=== PATIENT | male | born 1965 | race Caucasian/White ===

== ENCOUNTER 2017-09-10 14:39 | Inpatient (IN) | payer OTHER ==
[2017-09-10] MEDS: SOD CHLORIDE 0.9% 500 ML IV (21:30)
[2017-09-10 22:25] LABS: ADD MAN DIFF? NO
[2017-09-10 22:35] LABS: ADD UMIC YES; UR ASCORBIC ACID NEGATIVE (NEGATIVE); UR BILIRUBIN (Dip) NEGATIVE (NEGATIVE); UR BLOOD (Dip) NEGATIVE (NEGATIVE); UR CLARITY CLEAR (CLEAR); UR COLOR AMBER (YELLOW); UR GLUCOSE (Dip) NEGATIVE (NEGATIVE); UR KETONES (Dip) TRACE mg/dL (NEGATIVE); UR LEUKOCYTE ESTERASE (Dip) NEGATIVE Leu/ul (NEGATIVE); UR MUCUS FEW /HPF (NONE SEEN); UR NITRITE (Dip) NEGATIVE (NEGATIVE); UR RBC 1 /HPF (0-5); UR SPECIFIC GRAVITY (Dip) 1.029 (1.003-1.030); UR TOTAL PROTEIN (Dip) 1+ mg/dl (NEGATIVE); UR UROBILINOGEN (Dip) 1+ mg/dL (NEGATIVE); UR WBC 2 /HPF (0-5)
[2017-09-10 22:38] LABS: BASOPHILS % 0.4 % (0.0-2.0); EOSINOPHILS # 0.3 10^3/ul (0.0-0.5); EOSINOPHILS % 3.8 % (0.0-7.0); HEMATOCRIT 40.3 % (42.0-52.0); LYMPHOCYTES # 1.8 10^3/ul (0.8-2.9); LYMPHOCYTES % 25.2 % (15.0-51.0); MEAN CORPUSCULAR HEMOGLOBIN 28.1 pg (29.0-33.0); MEAN CORPUSCULAR HGB CONC 32.3 g/dl (32.0-37.0); MEAN CORPUSCULAR VOLUME 87.2 fl (82.0-101.0); MEAN PLATELET VOLUME 10.1 fl (7.4-10.4); MONOCYTE # 0.6 10^3/ul (0.3-0.9); MONOCYTES % 7.8 % (0.0-11.0); NEUTROPHIL # 4.4 10^3/ul (1.6-7.5); NEUTROPHILS % 62.5 % (39.0-77.0); PLATELET COUNT 261 10^3/UL (140-415); RED BLOOD COUNT 4.62 10^6/ul (4.70-6.10); RED CELL DISTRIBUTION WIDTH 14.1 % (11.5-14.5)
[2017-09-10 22:42] LABS: INR 0.97
[2017-09-10 22:43] LABS: PARTIAL THROMBOPLASTIN TIME 29.9 Sec (25.0-35.0)
[2017-09-10 22:45] LABS: ALANINE AMINOTRANSFERASE 43 IU/L (13-69); ALBUMIN 4.4 g/dl (3.3-4.9); ALBUMIN/GLOBULIN RATIO 1.46; ALKALINE PHOSPHATASE 89 IU/L (42-121); ANION GAP 16 (8-16); ASPARTATE AMINO TRANSFERASE 25 IU/L (15-46); BILIRUBIN,INDIRECT 0.6 mg/dl (0-1.1); BILIRUBIN,TOTAL 0.6 mg/dl (0.2-1.3); BLOOD UREA NITROGEN 25 mg/dl (7-20); CALCIUM 9.9 mg/dl (8.4-10.2); CARBON DIOXIDE 30 mmol/L (21-31); CHLORIDE 103 mmol/L (97-110); CREATININE 0.92 mg/dl (0.61-1.24); GLUCOSE 101 mg/dl (70-220); SODIUM 145 mmol/L (135-144); TOTAL PROTEIN 7.4 g/dl (6.1-8.1)
[2017-09-10 23:47] LABS: AMPHETAMINE/METHAMPHETAMINE Negative (NEGATIVE); BARBITURATES Negative (NEGATIVE); BENZODIAZEPINES Negative (NEGATIVE); CANNABINOIDS Negative (NEGATIVE); COCAINE Negative (NEGATIVE); OPIATES Negative (NEGATIVE)
[2017-09-11] MEDS ORDERED: ACETAMINOPHEN 325 MG TAB PO
[2017-09-11] MEDS: NA PHOSPHATE/BIPHOS 133 ML ENEMA PR (01:41)
[2017-09-11] MEDS: LORAZEPAM 2 MG INJ IV ×4 (01:41→16:54)
[2017-09-11] MEDS ORDERED: NACL 0.9% 3 ML SYG IV (02:00)
[2017-09-11] MEDS ORDERED: ONDANSETRON 4 MG INJ IV ×2 (02:00)
[2017-09-11 06:31] LABS: HEMOGLOBIN A1C 5.8 % (0-5.9)
[2017-09-11 07:16] LABS: CHOL/HDL RATIO 3.7 RATIO; CHOLESTEROL 89 mg/dl (100-200); HDL CHOLESTEROL 24 mg/dl (28-71); LDL CHOLESTEROL,CALCULATED 45 mg/dl; TRIGLYCERIDES 99 mg/dl (0-149)
[2017-09-11 08:16] LABS: FOLATE > 20.0 ng/ml (2.8-20.0)
[2017-09-12] MEDS: HALOPERIDOL 5 MG INJ IM ×3 (01:32→20:12)
[2017-09-12] MEDS: DIPHENHYDRAMINE 50 MG INJ IV ×2 (05:22→20:12)
[2017-09-12] MEDS: LORAZEPAM 2 MG INJ IV (06:06)
[2017-09-12] MEDS: FLUOXETINE 20 MG CAP PO (09:39)
[2017-09-12 11:43] LABS: ADD MAN DIFF? NO
[2017-09-12 11:46] LABS: BASOPHILS % 0.4 % (0.0-2.0); EOSINOPHILS # 0.2 10^3/ul (0.0-0.5); EOSINOPHILS % 2.5 % (0.0-7.0); HEMATOCRIT 39.2 % (42.0-52.0); HEMOGLOBIN 12.9 g/dl (14.0-18.0); LYMPHOCYTES # 1.3 10^3/ul (0.8-2.9); LYMPHOCYTES % 16.1 % (15.0-51.0); MEAN CORPUSCULAR HEMOGLOBIN 28.4 pg (29.0-33.0); MEAN CORPUSCULAR HGB CONC 32.9 g/dl (32.0-37.0); MEAN CORPUSCULAR VOLUME 86.3 fl (82.0-101.0); MEAN PLATELET VOLUME 10.1 fl (7.4-10.4); MONOCYTE # 0.6 10^3/ul (0.3-0.9); NEUTROPHIL # 5.9 10^3/ul (1.6-7.5); NEUTROPHILS % 73.9 % (39.0-77.0); PLATELET COUNT 240 10^3/UL (140-415); RED BLOOD COUNT 4.54 10^6/ul (4.70-6.10)
[2017-09-12 12:11] LABS: ALANINE AMINOTRANSFERASE 42 IU/L (13-69); ALBUMIN 3.8 g/dl (3.3-4.9); ALBUMIN/GLOBULIN RATIO 1.58; ALKALINE PHOSPHATASE 73 IU/L (42-121); ANION GAP 14 (8-16); ASPARTATE AMINO TRANSFERASE 27 IU/L (15-46); BILIRUBIN,INDIRECT 0.7 mg/dl (0-1.1); BILIRUBIN,TOTAL 0.7 mg/dl (0.2-1.3); BLOOD UREA NITROGEN 12 mg/dl (7-20); CALCIUM 9.2 mg/dl (8.4-10.2); CARBON DIOXIDE 28 mmol/L (21-31); CHLORIDE 107 mmol/L (97-110); GLUCOSE 99 mg/dl (70-220); POTASSIUM 3.5 mmol/L (3.5-5.1); SODIUM 145 mmol/L (135-144); TOTAL PROTEIN 6.2 g/dl (6.1-8.1)
[2017-09-12] MEDS: ACETAMINOPHEN 325 MG TAB PO (12:15)
[2017-09-12 13:33] LABS: ANA SCREEN NEGATIVE (NEGATIVE)
[2017-09-12] MEDS: LORAZEPAM 1 MG TAB PO (14:49)
[2017-09-12 19:43] LABS: RAPID PLASMA REAGIN NONREACTIVE (NR)
[2017-09-12] MEDS ORDERED: DIPHENHYDRAMINE 50 MG INJ (20:10)
[2017-09-12] MEDS ORDERED: HALOPERIDOL 5 MG INJ (20:10)
[2017-09-12] MEDS: ARIPIPRAZOLE 2 MG TAB PO (20:12)
[2017-09-13] MEDS: LORAZEPAM 1 MG TAB PO ×2 (01:04→21:46)
[2017-09-13] MEDS ORDERED: HALOPERIDOL 5 MG INJ (04:08)
[2017-09-13] MEDS: DIPHENHYDRAMINE 50 MG INJ IV (04:17)
[2017-09-13] MEDS: HALOPERIDOL 5 MG INJ IM (04:17)
[2017-09-13] MEDS: FLUOXETINE 20 MG CAP PO (09:01)
[2017-09-13] MEDS: ARIPIPRAZOLE 2 MG TAB PO ×2 (12:36→21:46)
[2017-09-13 17:26] LABS: CERULOPLASMIN 27 mg/dL (18-36)
[2017-09-13] MEDS ORDERED: GLUCOSE GEL 15 GRAM TUBE PO ×2 (21:00)
[2017-09-13] MEDS ORDERED: GLUCOSE GEL 15 GRAM TUBE BUCCAL (21:00)
[2017-09-13] MEDS: INSULIN ASPART [NOVOLOG] 3 ML PEN SC (21:00)
[2017-09-13] MEDS ORDERED: DEXTROSE 50% 50 ML SYRINGE IV ×2 (21:00)
[2017-09-13] MEDS ORDERED: GLUCAGON 1 MG INJ IM (21:00)
[2017-09-13] MEDS: POLYETHYLENE GLYCOL 17 GM PACKET PO (21:46)
[2017-09-14] MEDS: ACCU-CHEK XX (02:00)
[2017-09-14] MEDS: ACETAMINOPHEN 325 MG TAB PO (04:26)
[2017-09-14] MEDS: SENNA TAB PO (04:26)
[2017-09-14] MEDS: INSULIN ASPART [NOVOLOG] 3 ML PEN SC ×4 (08:00→20:26)
[2017-09-14] MEDS: FLUOXETINE 20 MG CAP PO (09:18)
[2017-09-14] MEDS: POLYETHYLENE GLYCOL 17 GM PACKET PO ×2 (09:18→20:20)
[2017-09-14] MEDS: ARIPIPRAZOLE 2 MG TAB PO ×2 (09:18→20:20)
[2017-09-14] MEDS: LORAZEPAM 2 MG INJ IV (18:05)
[2017-09-15] MEDS: LORAZEPAM 2 MG INJ IV ×2 (00:19→23:04)
[2017-09-15] MEDS: ACCU-CHEK XX (02:00)
[2017-09-15] MEDS: INSULIN ASPART [NOVOLOG] 3 ML PEN SC ×4 (08:00→20:46)
[2017-09-15] MEDS: ARIPIPRAZOLE 2 MG TAB PO ×2 (09:15→20:40)
[2017-09-15] MEDS: SENNA TAB PO (09:15)
[2017-09-15] MEDS: POLYETHYLENE GLYCOL 17 GM PACKET PO ×2 (09:15→20:40)
[2017-09-15] MEDS: FLUOXETINE 20 MG CAP PO (09:15)
[2017-09-15 15:37] LABS: VITAMIN B1 (THIAMINE) 201 nmol/L (78-185)
[2017-09-16] MEDS: HALOPERIDOL 5 MG INJ IM ×2 (00:15→03:53)
[2017-09-16] MEDS: ACCU-CHEK XX (01:38)
[2017-09-16] MEDS: DIPHENHYDRAMINE 50 MG INJ IV (02:01)
[2017-09-16] MEDS: LORAZEPAM 2 MG INJ IV ×2 (03:53→20:35)
[2017-09-16] MEDS: INSULIN ASPART [NOVOLOG] 3 ML PEN SC ×4 (08:00→20:34)
[2017-09-16] MEDS: POLYETHYLENE GLYCOL 17 GM PACKET PO ×2 (08:10→20:34)
[2017-09-16] MEDS: FLUOXETINE 20 MG CAP PO (08:11)
[2017-09-16] MEDS: ARIPIPRAZOLE 2 MG TAB PO ×2 (08:11→20:34)
[2017-09-17] MEDS: HALOPERIDOL 5 MG INJ IM ×3 (00:23→23:53)
[2017-09-17] MEDS: ACCU-CHEK XX ×2 (01:57→23:59)
[2017-09-17] MEDS: LORAZEPAM 2 MG INJ IV ×2 (02:26→20:17)
[2017-09-17] MEDS: DIPHENHYDRAMINE 50 MG INJ IV (03:22)
[2017-09-17] MEDS: INSULIN ASPART [NOVOLOG] 3 ML PEN SC ×4 (08:00→20:16)
[2017-09-17] MEDS: POLYETHYLENE GLYCOL 17 GM PACKET PO ×2 (08:07→20:17)
[2017-09-17] MEDS: ARIPIPRAZOLE 2 MG TAB PO ×2 (08:09→20:17)
[2017-09-17] MEDS: FLUOXETINE 20 MG CAP PO (08:09)
[2017-09-18 05:55] LABS: ADD MAN DIFF? NO
[2017-09-18 05:56] LABS: BASOPHIL # 0.1 10^3/ul (0.0-0.1); BASOPHILS % 0.4 % (0.0-2.0); EOSINOPHILS # 0.3 10^3/ul (0.0-0.5); EOSINOPHILS % 2.1 % (0.0-7.0); HEMATOCRIT 39.5 % (42.0-52.0); HEMOGLOBIN 13.1 g/dl (14.0-18.0); LYMPHOCYTES # 1.9 10^3/ul (0.8-2.9); LYMPHOCYTES % 15.6 % (15.0-51.0); MEAN CORPUSCULAR HEMOGLOBIN 28.8 pg (29.0-33.0); MEAN CORPUSCULAR HGB CONC 33.2 g/dl (32.0-37.0); MEAN CORPUSCULAR VOLUME 86.8 fl (82.0-101.0); MEAN PLATELET VOLUME 10.6 fl (7.4-10.4); MONOCYTE # 0.9 10^3/ul (0.3-0.9); MONOCYTES % 7.3 % (0.0-11.0); NEUTROPHIL # 8.9 10^3/ul (1.6-7.5); NEUTROPHILS % 74.3 % (39.0-77.0); PLATELET COUNT 298 10^3/UL (140-415); RED BLOOD COUNT 4.55 10^6/ul (4.70-6.10); RED CELL DISTRIBUTION WIDTH 14.2 % (11.5-14.5)
[2017-09-18 06:53] LABS: ANION GAP 19 (8-16); BLOOD UREA NITROGEN 17 mg/dl (7-20); CALCIUM 10.1 mg/dl (8.4-10.2); CARBON DIOXIDE 25 mmol/L (21-31); CHLORIDE 106 mmol/L (97-110); CREATININE 0.92 mg/dl (0.61-1.24); GLUCOSE 118 mg/dl (70-220); MAGNESIUM 2.1 mg/dl (1.7-2.5); PHOSPHORUS 4.2 mg/dl (2.5-4.9); POTASSIUM 3.8 mmol/L (3.5-5.1); SODIUM 146 mmol/L (135-144)
[2017-09-18] MEDS: LORAZEPAM 2 MG INJ IV ×3 (07:58→20:57)
[2017-09-18] MEDS: INSULIN ASPART [NOVOLOG] 3 ML PEN SC ×4 (08:00→21:02)
[2017-09-18] MEDS: ARIPIPRAZOLE 2 MG TAB PO ×2 (09:12→20:57)
[2017-09-18] MEDS: FLUOXETINE 20 MG CAP PO (09:12)
[2017-09-18] MEDS: POLYETHYLENE GLYCOL 17 GM PACKET PO ×2 (09:12→20:57)
[2017-09-18] MEDS: HALOPERIDOL 5 MG INJ IM ×2 (10:24→21:22)
[2017-09-18] MEDS: D5W-0.45 NACL + KCL 20 MEQ 1,000 ML IV ×2 (11:12→21:00)
[2017-09-18] MEDS ORDERED: ALPRAZOLAM 0.5 MG TAB PO (12:30)
[2017-09-18] MEDS: MEMANTINE 5 MG TAB PO (17:32)
[2017-09-18] MEDS: DONEPEZIL 5 MG TAB PO (17:32)
[2017-09-18] MEDS: ACETAMINOPHEN 325 MG TAB PO (20:57)
[2017-09-19] MEDS: ACCU-CHEK XX (02:00)
[2017-09-19] MEDS: LORAZEPAM 2 MG INJ IV ×2 (02:52→22:24)
[2017-09-19 08:00] LABS: ADD MAN DIFF? NO
[2017-09-19 08:09] LABS: WHITE BLOOD COUNT 9.6 10^3/ul (4.8-10.8)
[2017-09-19 08:09] LABS: BASOPHIL # 0.1 10^3/ul (0.0-0.1); BASOPHILS % 0.5 % (0.0-2.0); EOSINOPHILS # 0.3 10^3/ul (0.0-0.5); EOSINOPHILS % 2.8 % (0.0-7.0); HEMATOCRIT 40.9 % (42.0-52.0); LYMPHOCYTES # 1.2 10^3/ul (0.8-2.9); LYMPHOCYTES % 12.9 % (15.0-51.0); MEAN CORPUSCULAR HEMOGLOBIN 28.1 pg (29.0-33.0); MEAN CORPUSCULAR HGB CONC 31.8 g/dl (32.0-37.0); MEAN CORPUSCULAR VOLUME 88.3 fl (82.0-101.0); MEAN PLATELET VOLUME 10.2 fl (7.4-10.4); MONOCYTE # 0.7 10^3/ul (0.3-0.9); MONOCYTES % 7.5 % (0.0-11.0); NEUTROPHIL # 7.3 10^3/ul (1.6-7.5); PLATELET COUNT 273 10^3/UL (140-415); RED BLOOD COUNT 4.63 10^6/ul (4.70-6.10); RED CELL DISTRIBUTION WIDTH 14.2 % (11.5-14.5)
[2017-09-19 08:44] LABS: ANION GAP 14 (8-16); BLOOD UREA NITROGEN 20 mg/dl (7-20); CALCIUM 9.5 mg/dl (8.4-10.2); CARBON DIOXIDE 26 mmol/L (21-31); CHLORIDE 108 mmol/L (97-110); CREATININE 0.74 mg/dl (0.61-1.24); GLUCOSE 114 mg/dl (70-220); POTASSIUM 3.9 mmol/L (3.5-5.1); SODIUM 144 mmol/L (135-144)
[2017-09-19] MEDS: INSULIN ASPART [NOVOLOG] 3 ML PEN SC ×4 (08:49→21:00)
[2017-09-19] MEDS: DONEPEZIL 5 MG TAB PO (09:00)
[2017-09-19] MEDS: FLUOXETINE 20 MG CAP PO (09:00)
[2017-09-19] MEDS: POLYETHYLENE GLYCOL 17 GM PACKET PO ×2 (09:00→22:05)
[2017-09-19] MEDS: ARIPIPRAZOLE 2 MG TAB PO ×2 (09:00→22:04)
[2017-09-19] MEDS: MEMANTINE 5 MG TAB PO (09:00)
[2017-09-19] MEDS: SOD CHLORIDE 0.45% 1,000 ML IV (17:45)
[2017-09-19] MEDS: HALOPERIDOL 5 MG INJ IM (22:44)
[2017-09-20] MEDS: DIPHENHYDRAMINE 50 MG INJ IV ×2 (00:07→03:45)
[2017-09-20] MEDS: ACCU-CHEK XX (01:06)
[2017-09-20] MEDS: HALOPERIDOL 5 MG INJ IM (02:16)
[2017-09-20] MEDS: LORAZEPAM 2 MG INJ IV ×3 (02:17→14:16)
[2017-09-20] MEDS: SOD CHLORIDE 0.45% 1,000 ML IV ×3 (03:30→14:23)
[2017-09-20] MEDS: INSULIN ASPART [NOVOLOG] 3 ML PEN SC ×4 (08:00→21:00)
[2017-09-20] MEDS: DONEPEZIL 5 MG TAB PO (08:06)
[2017-09-20] MEDS: BENZTROPINE 1 MG TAB PO (08:06)
[2017-09-20] MEDS: MEMANTINE 5 MG TAB PO (08:06)
[2017-09-20] MEDS: POLYETHYLENE GLYCOL 17 GM PACKET PO ×2 (08:06→20:58)
[2017-09-20] MEDS: QUETIAPINE 25 MG TAB PO (08:06)
[2017-09-20] MEDS: FLUOXETINE 20 MG CAP PO (08:06)
[2017-09-20] MEDS: ARIPIPRAZOLE 2 MG TAB PO (08:06)
[2017-09-20] MEDS ORDERED: BISACODYL 10 MG SUPP PR (17:30)
[2017-09-20] MEDS: DOCUSATE SODIUM 100 MG CAP PO (20:58)
[2017-09-20] MEDS: DILTIAZEM (CD) 180 MG CAP PO (20:59)
[2017-09-20] MEDS: QUETIAPINE 100 MG TAB PO (20:59)
[2017-09-20] MEDS ORDERED: ARIPIPRAZOLE 5 MG TAB PO (21:00)
[2017-09-20] MEDS: SENNA TAB PO (21:00)
[2017-09-21] MEDS: ACCU-CHEK XX (01:27)
[2017-09-21] MEDS: LORAZEPAM 2 MG INJ IV ×2 (03:26→16:07)
[2017-09-21] MEDS: INSULIN ASPART [NOVOLOG] 3 ML PEN SC ×4 (08:00→21:00)
[2017-09-21] MEDS: DOCUSATE SODIUM 100 MG CAP PO ×2 (09:21→21:34)
[2017-09-21] MEDS: SENNA TAB PO ×2 (09:22→21:34)
[2017-09-21] MEDS: BENZTROPINE 1 MG TAB PO (09:22)
[2017-09-21] MEDS: QUETIAPINE 25 MG TAB PO (09:23)
[2017-09-21] MEDS: FLUOXETINE 20 MG CAP PO (09:23)
[2017-09-21] MEDS: POLYETHYLENE GLYCOL 17 GM PACKET PO ×2 (09:24→21:34)
[2017-09-21] MEDS: SOD CHLORIDE 0.45% 1,000 ML IV ×2 (13:20→21:45)
[2017-09-21] MEDS ORDERED: MAGNESIUM HYDROXIDE 30ML CUP PO (14:00)
[2017-09-21] MEDS: MAGNESIUM HYDROXIDE 30ML CUP PO (16:08)
[2017-09-21] MEDS: QUETIAPINE 100 MG TAB PO (21:35)
[2017-09-21] MEDS: DILTIAZEM (CD) 180 MG CAP PO (21:35)
[2017-09-22] MEDS: ACCU-CHEK XX (02:00)
[2017-09-22] MEDS: SOD CHLORIDE 0.45% 1,000 ML IV (02:48)
[2017-09-22] MEDS: INSULIN ASPART [NOVOLOG] 3 ML PEN SC (07:55)
[2017-09-22] MEDS: POLYETHYLENE GLYCOL 17 GM PACKET PO ×2 (08:18→20:28)
[2017-09-22] MEDS: BENZTROPINE 1 MG TAB PO (08:19)
[2017-09-22] MEDS: DOCUSATE SODIUM 100 MG CAP PO ×2 (08:19→20:28)
[2017-09-22] MEDS: MAGNESIUM HYDROXIDE 30ML CUP PO (08:19)
[2017-09-22] MEDS: NA PHOSPHATE/BIPHOS 133 ML ENEMA PR (08:19)
[2017-09-22] MEDS: SENNA TAB PO ×2 (08:19→20:29)
[2017-09-22] MEDS: QUETIAPINE 25 MG TAB PO (08:19)
[2017-09-22] MEDS: FLUOXETINE 20 MG CAP PO (08:23)
[2017-09-22] MEDS: LORAZEPAM 2 MG INJ IV ×2 (14:39→23:23)
[2017-09-22] MEDS: LEVOFLOXACIN 500MG/D5W (PMX) 100 ML IVPB (20:28)
[2017-09-22] MEDS: DILTIAZEM (CD) 180 MG CAP PO ×2 (20:29→21:41)
[2017-09-22] MEDS: QUETIAPINE 100 MG TAB PO (20:29)
[2017-09-23] MEDS: DOCUSATE SODIUM 100 MG CAP PO ×2 (09:00→21:00)
[2017-09-23] MEDS: SENNA TAB PO ×2 (09:00→21:00)
[2017-09-23] MEDS: NA PHOSPHATE/BIPHOS 133 ML ENEMA PR (09:00)
[2017-09-23] MEDS: POLYETHYLENE GLYCOL 17 GM PACKET PO ×2 (09:00→21:00)
[2017-09-23] MEDS: FLUOXETINE 20 MG CAP PO (09:14)
[2017-09-23] MEDS: BENZTROPINE 1 MG TAB PO (09:14)
[2017-09-23] MEDS: QUETIAPINE 25 MG TAB PO (09:14)
[2017-09-23] MEDS: LORAZEPAM 2 MG INJ IV (16:27)
[2017-09-23] MEDS: QUETIAPINE 100 MG TAB PO (22:13)
[2017-09-24] MEDS: POLYETHYLENE GLYCOL 17 GM PACKET PO ×2 (08:54→20:15)
[2017-09-24] MEDS: SENNA TAB PO ×2 (08:54→20:15)
[2017-09-24] MEDS: NA PHOSPHATE/BIPHOS 133 ML ENEMA PR (08:54)
[2017-09-24] MEDS: DOCUSATE SODIUM 100 MG CAP PO ×2 (08:55→20:15)
[2017-09-24] MEDS: BENZTROPINE 1 MG TAB PO (08:55)
[2017-09-24] MEDS: QUETIAPINE 25 MG TAB PO (08:55)
[2017-09-24 12:09] LABS: HIV 1&2 ANTIBODY NEGATIVE (NEGATIVE)
[2017-09-24] MEDS: LORAZEPAM 2 MG INJ IV (16:03)
[2017-09-24] MEDS: CIPROFLOXACIN 500 MG TAB PO (19:38)
[2017-09-24] MEDS: QUETIAPINE 100 MG TAB PO (20:15)
[2017-09-25] MEDS: CIPROFLOXACIN 500 MG TAB PO ×2 (06:10→18:20)
[2017-09-25] MEDS: QUETIAPINE 25 MG TAB PO (08:34)
[2017-09-25] MEDS: DOCUSATE SODIUM 100 MG CAP PO (08:34)
[2017-09-25] MEDS: NA PHOSPHATE/BIPHOS 133 ML ENEMA PR (08:34)
[2017-09-25] MEDS: SENNA TAB PO (08:35)
[2017-09-25] MEDS: POLYETHYLENE GLYCOL 17 GM PACKET PO (08:35)
[2017-09-25] MEDS: BENZTROPINE 1 MG TAB PO (08:35)
[2017-09-25] MEDS: LORAZEPAM 1 MG TAB PO (18:20)
== END 2017-09-25 19:30 | disposition short-term general hospital (02) | DRG 57 ==
LOC: MS4 09-20 02:55 → TEL 09-21 23:32 → PP2 23:44 → E/R 14:39 → PP2 09-11 13:16
DX: G20 Parkinson's disease (principal); F02.81 Dementia in other diseases classified elsewhere, unspecified severity, with behavioral disturbance; E11.8 Type 2 diabetes mellitus with unspecified complications; G10 Huntington's disease; F25.1 Schizoaffective disorder, depressive type; N39.498 Other specified urinary incontinence; R33.9 Retention of urine, unspecified; K59.00 Constipation, unspecified; B95.8 Unspecified staphylococcus as the cause of diseases classified elsewhere; R26.81 Unsteadiness on feet; G31.84 Mild cognitive impairment of uncertain or unknown etiology; R47.1 Dysarthria and anarthria; F31.9 Bipolar disorder, unspecified; Z72.0 Tobacco use; Z78.1 Physical restraint status
CPT/HCPCS: 36415; 70450; 70553; 71045; 74018; 74176; 80048; 80053; 80061; 80307; 81001; 82390; 82525; 82607; 82746; 82962; 83015; 83036; 83735; 84100; 84425; 84443; 85025; 85610; 85730; 86038; 86592; 86703; 87040; 87086; 92526; 92610; 93005; 96374; 97162; 97164; 99285-25; G0378

== ENCOUNTER 2018-04-26 22:58 | Emergency (ER) | payer OTHER | END 2018-04-27 03:11 | disposition left against medical advice (07) | LOC: FTE 22:58 | DX: Z53.21 Procedure and treatment not carried out due to patient leaving prior to being seen by health care provider (principal) ==